=== PATIENT | female | born 1985 | race Caucasian/White ===

== ENCOUNTER 2018-06-15 18:52 | Emergency (ER) | payer OTHER, SELFPAY ==
[2018-06-15 18:56] VITALS: BP 130/77; PULSE 89; RESP 20; TEMP 36.7; O2SAT 100
[2018-06-15 20:13] LABS: Bacteria Urine Moderate (10-30); Culture Indicated Urine Specimen Cultured; RBC Urine 10-30/HPF (0-5/HPF); Squamous Epithelial Cell Urine 1-5 /HPF; Transitional Epi Cells Urine 1-5/HPF (0-5/HPF); WBC Urine 30-100/HPF (0-5/HPF)
--- NOTE | 2018-06-15 21:03 | ED.BACK ---
HPI - Back Pain/Injury General Chief Complaint: Back Pain/Injury Stated Complaint: STATES KIDNEY PAIN Time Seen by Provider: 06/15/18 20:56 Source: patient Mode of arrival: ambulatory Limitations: no limitations History of Present Illness HPI Narrative: Patient is a 32-year-old female presents with bilat neural kidney pain. She says it just started today. That 2 days ago she had some frequent painful urination. She has not had fever or chills of the weather has been changing and she has noticed how her temperature changing with that. No abdominal pain no nausea or vomiting. MD Complaint: back pain Related Data Previous Rx's Medication Instructions Recorded sulfamethoxazole-trimethoprim 1 tab PO Q12H #14 tab 06/15/18 [Bactrim DS] Allergies Allergy/AdvReac Type Severity Reaction Status Date / Time No Known Drug Allergies Allergy Verified 06/15/18 21:12 Review of Systems Review of Systems All systems reviewed & are unremarkable except as noted in HPI and below Constitutional Denies chills, Denies fever(s), Denies lethargy and Denies weakness Cardiovascular Denies chest pain, Denies irregular heart rhythm, Denies lightheadedness, Denies palpitations, Denies dyspnea, Denies dyspnea on exertion and Denies orthopnea Respiratory Denies cough, Denies dyspnea, Denies dyspnea on exertion and Denies wheezing Gastrointestinal Gastrointestinal: Denies abdominal pain, Denies change in bowel habits, Denies diarrhea, Denies nausea and Denies vomiting Genitourinary Reports as per HPI Integumentary/Breasts Denies pruritus, Denies erythema, Denies rash and Denies wounds Neurologic Denies weakness Endocrine Denies palpitations Allergic/Immunologic Denies wheezing Exam Initial Vital Signs Initial Vital Signs: Vital Signs Temperature 98.0 F 06/15/18 18:56 Pulse Rate 89 06/15/18 18:56 Respiratory Rate 20 06/15/18 18:56 Blood Pressure 130/77 H 06/15/18 18:56 Pulse Oximetry 100 06/15/18 18:56 GENERAL: Well-appearing, well-nourished and in no acute distress. HEENT: Head atraumatic,EOMI, pupils reactive, face symmetric, moist mucous membrane CARDIOVASCULAR: Regular rate and rhythm without murmurs, rubs or gallops. RESPIRATORY: Breath sounds equal bilaterally, no wheezes rales or rhonchi. ABDOMEN: Soft, nontender. Normoactive bowel sounds all 4 quadrants. No guarding or rebound. : Bilateral flank pain EXTREMITIES: Normal range of motion, no clubbing or edema. Neurovascularly intact NEUROLOGICAL: Alert and oriented x4.Normal gait and speech. Cranial nerves II through XII grossly intact. SKIN: Warm, dry, no laceration, no petechiae, no rashes or lesions. Course Orders Ordered: ED Orders 06/15/18 19:10 Urine Culture Stat Urine Microscopic Stat Discontinued Medications Trimethoprim/Sulfamethoxazole (Bactrim Ds Prepack) 1 bottle MISC SEEINSTR ONE Stop: 06/15/18 21:06 Last Admin: 06/15/18 21:12 Dose: 1 bottle Vital Signs - 8 hr 06/15/18 18:56 06/15/18 21:19 Temperature 98.0 F Pulse Rate 89 95 H Respiratory Rate 20 18 Blood Pressure 130/77 H 118/82 H Pulse Oximetry 100 100 MDM - Back Pain/Injury Lab Data Lab Results 06/15/18 Range/Units 19:10 Urine RBC 10-30/hpf H (0-5/HPF) Urine WBC 30-100/hpf H (0-5/HPF) Ur Squamous Epith Cells 1-5 /hpf Ur Transition Epith Cell 1-5/hpf (0-5/HPF) Urine Bacteria Moderate (10-30) H (None) Ur Culture Indicated? Specimen cultured Micro UA Comment Not Reportable MDM Narrative Medical decision making narrative: Patient does not appear toxic or septic. At this time treat with oral antibiotics. Discharge Plan Departure Patient Disposition: Home, Self-Care Clinical Impression: UTI (urinary tract infection) Discharge Date/Time: 06/15/18 21:19 Interventions: ED Discharge Assessment Last Done: 06/15/18 21:19 Instructions: Kidney Infection Activity Restrictions/Additional Instructions: *You have been diagnosed with kidney infection *What to do: Increase fluid intake, Tylenol or ibuprofen as directed if needed for pain *Continue to take medications as directed Bactrim 1 tab twice a day for 1 week *Follow up with your primary care provider in 2-3 days *Return to ER if you should have inability to take antibiotics, fever not controlled, worsening pain or any new, worsening or concerning symptoms Prescriptions: New sulfamethoxazole-trimethoprim [Bactrim DS] 800-160 mg tablet 1 tab PO Q12H Qty: 14 RF: 0
[2018-06-15] MEDS: SULFA/TRIMETH 800/160 PREPACK 1 BOTTLE MISC (21:12)
[2018-06-15 21:19] VITALS: BP 118/82; PULSE 95; RESP 18; O2SAT 100
== END 2018-06-15 21:19 | disposition home or self-care (01) ==
PROVIDERS: Emergency Provider Emergency Medicine
DX: N39.0 Urinary tract infection, site not specified (principal)
CPT/HCPCS: 81003; 81015; 81025; 87077; 87086; 99282; 99283